=== PATIENT | male | born 1965 ===

== ENCOUNTER 2024-03-26 20:49 | Emergency (ER) | payer BC, SELFPAY ==
--- NOTE | ~2024-03-26 | CT_ITS ---
EXAMINATION: CT ANGIOGRAM NECK AND HEAD CLINICAL INFORMATION: Severe neck pain and headache COMPARISON: None. TECHNIQUE: Initial noncontrast head CT was performed. Test bolus sequences followed by intravenous administration 70 mL of Omnipaque 350. Helical imaging was performed in the axial plane from the thoracic inlet to the skull vertex. Delayed postcontrast imaging of the head was also performed. The data was processed at the human performance technologist's workstation for generation of MIP sequences. Angled MIPs and volume rendered reformatted images were also generated at an offline 3D workstation. Stenoses are assessed in accordance with NASCET criteria unless otherwise indicated. DOSE LOWERING TECHNIQUES: This CT examination was performed using dose optimization techniques as appropriate, variously including the following: - Automated exposure control - Adjustment of mA and/or kV according to patient size (this includes techniques or standardized protocols for targeted exams were dose is matched to indication/reason for exam; i.e. extremities or head) - Use of iterative reconstruction technique DLP: 2396 mGy-cm FINDINGS: Neck CTA: There is common origin of the brachiocephalic and left common carotid arteries off the aortic arch. Normal appearance of the visualized aortic arch and proximal branches. No evidence of stenosis at the branch origins. Both vertebral arteries are widely patent throughout their extracranial cervical course. There is mild calcification at the bilateral proximal internal carotid arteries, without significant stenosis. Otherwise normal appearance of the common and internal carotid arteries without focal stenosis. Brain CTA: Normal appearance of the intradural vertebral arteries, and the left vertebral artery is dominant. Normal appearance of the basilar and superior cerebellar arteries. Normally opacified posterior cerebral arteries bilaterally. Normal appearance of the intradural internal carotid arteries without focal stenosis. Normal appearance of the anterior cerebral and middle cerebral arteries without focal occlusion or stenosis. Normal anterior communicating artery. Normal arborization of the middle cerebral arteries. CT Head: No intracranial mass, hemorrhage, extra-axial collection, or midline shift. The ramirez-white matter differentiation is preserved. No pathologic intra-axial enhancement or regional oligemia. No hydrocephalus. The mastoid air cells and paranasal sinuses remain well aerated. CT Neck: The thyroid gland and remaining cervical soft tissues are normal in appearance. There is disc space narrowing and endplate osteophyte formation in the lower cervical spine. Upper Chest: No abnormalities in the visualized lung apices or upper mediastinum. CT/CT angio head neck IMPRESSION: 1. No acute intracranial findings. 2. No hemodynamically significant stenosis in the major arteries of the neck. No large vessel occlusion or significant stenosis in the intracranial circulation.
[2024-03-26 21:20] VITALS: BP 140/84; PULSE 92; RESP 16; TEMP 35.9; O2SAT 98; BMI 28.3
[2024-03-26 21:43] VITALS: BP 125/83; PULSE 87; RESP 16; TEMP 36.7; O2SAT 96
[2024-03-26 22:04] LABS: MANUAL DIFF FLAG NO
[2024-03-26 22:13] LABS: Basophils Percent Auto 0.4 % (0-2); Eosinophils Absolute Auto 0.4 X10*3/uL (0.0-0.4); Eosinophils Percent Auto 4.7 % (0-4); Hematocrit 40.5 % (42.0-52.0); Hemoglobin 13.8 g/dl (14.0-18.0); Imm Gran Abs Auto 0.01 X10*3/uL (0.00-0.03); Imm Gran Pct Auto 0.1 % (0.0-0.4); Lymphocytes Absolute Auto 4.1 X10*3/uL (1.2-4.9); Lymphocytes Percent Auto 48.9 % (20-40); Mean Corpuscular HGB Conc 34.1 g/dl (31.0-36.0); Mean Corpuscular Hemoglobin 26.7 pg (27.0-33.0); Mean Corpuscular Volume 78.5 fL (80.0-98.0); Mean Platelet Volume 9.4 fL (9.4-12.4); Monocytes Absolute Auto 0.6 X10*3/uL (0.1-1.2); Monocytes Percent Auto 7.3 % (2-11); Neutrophils Absolute Auto 3.2 x10*3/uL (2.0-8.3); Neutrophils Percent Auto 38.6 % (45-73); Platelet Count 255 X10*3/uL (160-400); Red Blood Count 5.16 X10*6/uL (4.60-5.80); Red Cell Distribution Width 12.5 % (11.0-16.0); White Blood Count 8.3 X10*3/uL (4.8-10.8)
[2024-03-26 22:20] LABS: Alanine Aminotransferase 21 U/L (0-40); Albumin Level 4.4 g/dL (3.5-5.0); Alkaline Phosphatase 48 U/L (39-117); Anion Gap 16 (12-20); Aspartate Amino Transferase 17 U/L (5-37); Bilirubin Total 0.2 mg/dL (0.0-1.0); Blood Urea Nitrogen 20 mg/dL (9-16); Calcium 10.3 mg/dL (8.4-10.2); Carbon Dioxide 24 mmol/L (22-29); Chloride 102 mmol/L (96-108); Creatinine Clr Calc Pharmacy 106.6; Estimated Glomerular Filt Rate > 60; Glucose Random 179 mg/dL (60-115); Sodium 138 mmol/L (135-145); Total Protein 7.7 g/dL (6.5-8.0)
[2024-03-26 22:51] LABS: Erythrocyte Sedimentation Rate 8 MM/HR (0-15)
--- NOTE | 2024-03-26 23:03 | ED_ITS ---
HPI - General Adult General Chief complaint: General Medical Stated complaint: head and neck pain Time Seen by Provider: 03/26/24 21:33 Source: patient Mode of arrival: ambulatory Limitations: no limitations History of Present Illness HPI narrative: Patient with no significant past medical history ambulate having headache in back of the neck pain for last 4 months started after roping exercise 4 months ago when he came out the gym noticed pain which was sharp character left side of the back radiating gradually got better after seeing chiropractor x-ray of the neck was negative patient has been taking ibuprofen for pain as needed for last 3 days pain started again side of the neck radiating to the back of the head more severe than before was seen at [facility] 2 days ago plain head CT was negative diagnose as complex migraine does have photosensitivity took sumatriptan got better again with started today 2 days ago patient vomited and felt dizzy with spinning movement. At this time patient has a deep sharp pain in bilateral sides of the neck in the occipital area. No history of migraines Related Data Previous Rx's ?Medication ?Instructions ?Recorded fmksnhcngv-rpslvfaqyzkra-sqyyntxp 1 tab PO Q6H PRN haeadace #20 tabs 03/27/24 50 mg-325 mg-40 mg tablet cyclobenzaprine 10 mg tablet 10 mg PO Q8H #20 tabs 03/27/24 tramadol 50 mg tablet 50 mg PO Q6H PRN pain #20 tabs 03/27/24 Allergies Allergy/AdvReac Type Severity Reaction Status Date / Time No Known Allergies Allergy Verified 03/26/24 21:24 Review of Systems 2 Review of Systems: Yes all other systems are reviewed and are negative [facility] Social History Social History Advance Directives: No Advance Directives Information Provided: No Do you have a plan to hurt others: No Plan Physical Exam ED Vital Signs: Vital Signs - 24 hr 03/26/24 21:20 03/26/24 21:43 Temperature 96.7 F L 98.0 F Pulse Rate 92 87 Respiratory Rate 16 16 Blood Pressure 140/84 H 125/83 Pulse Oximetry 98 96 Oxygen Delivery Method Room Air Room Air BMI result Body Mass Index 28.3 Appearance: Alert. Oriented X3. No acute distress. Eyes: PERRLA, No Nystagmus ENT: Pharynx normal. Oral Mucosa moist no carotid bruit Neck: Normal inspection. Neck supple. Diffuse tenderness bilateral paraspinal area CVS: Normal heart rate and rhythm. Pulses normal. Respiratory: No respiratory distress. Equal air entry bilateral, no wheezing/rales/rhonchi Abdomen: Soft and nontender. Bowel sounds are present, no mass palpable, no CVA tenderness Skin: Skin warm and dry. Normal skin color. Normal skin turgor. Extremities: No lower extremity edema. No calf tenderness Neuro: Oriented X 3. No motor deficit. No sensory deficit.No cerebellar signs , cranial nerves II-XII intact Medications Administered Discontinued Medications Generic Name Dose Route Start Last Admin Trade Name Freq PRN Reason Stop Dose Admin Iohexol 70 ml 03/26/24 23:05 03/26/24 23:05 Iohexol 350 Mg/Ml 100 Ml Infus..Btl IV 03/26/24 23:06 70 ml ONCE ONE Administration Medical Decision Making Medical Decision Making [facility] Narrative: Patient with nonspecific headache likely muscular strain/complex migraine CT scan CTA negative for acute on tramadol/Flexeril/Fioricet Differential Diagnosis Differential Diagnoses: The differential diagnosis associated with the presentation includes CVA/space-occupying lesion/vertebral artery dissection/vertebral artery stenosis/carotid dissection Admission/Observation Consideration of admission/observation: Escalation of care including admission/observation considered Lab Data [facility] Lab Attestation statement: I reviewed the patient's lab results. 03/26/24 21:53 03/26/24 21:53 Labs: Lab Results 03/26/24 Range/Units 21:53 WBC 8.3 (4.8-10.8) X10*3/uL RBC 5.16 (4.60-5.80) X10*6/uL Hgb 13.8 L (14.0-18.0) g/dl Hct 40.5 L (42.0-52.0) % MCV 78.5 L (80.0-98.0) fL MCH 26.7 L (27.0-33.0) pg MCHC 34.1 (31.0-36.0) g/dl RDW 12.5 (11.0-16.0) % Plt Count 255 (160-400) X10*3/uL MPV 9.4 (9.4-12.4) fL Immature Gran % (Auto) 0.1 (0.0-0.4) % Neut % (Auto) 38.6 L (45-73) % Lymph % (Auto) 48.9 H (20-40) % Brantley % (Auto) 7.3 (2-11) % Eos % (Auto) 4.7 H (0-4) % Baso % (Auto) 0.4 (0-2) % Lymph # (Auto) 4.1 (1.2-4.9) X10*3/uL Brantley # (Auto) 0.6 (0.1-1.2) X10*3/uL Eos # (Auto) 0.4 (0.0-0.4) X10*3/uL Baso # (Auto) 0.0 (0.0-0.2) X10*3/uL Abs Immat Gran (auto) 0.01 (0.00-0.03) X10*3/uL Absolute Neuts (auto) 3.2 (2.0-8.3) x10*3/uL Absolute Nucleated RBC 0.000 (0.0-0.012) X10*3/uL Nucleated RBC % (auto) 0.0 (0.0-0.2) /100WBC ESR 8 (0-15) MM/HR Sodium 138 (135-145) mmol/L Potassium 4.0 (3.3-5.1) mmol/L Chloride 102 (96-108) mmol/L Carbon Dioxide 24 (22-29) mmol/L Anion Gap 16 (12-20) BUN 20 H (9-16) mg/dL Creatinine 0.86 (0.5-1.4) mg/dL Estim Creat Clear Calc 106.6 Estimated GFR > 60 Random Glucose 179 H (60-115) mg/dL Calcium 10.3 H (8.4-10.2) mg/dL Total Bilirubin 0.2 (0.0-1.0) mg/dL AST 17 (5-37) U/L ALT 21 (0-40) U/L Alkaline Phosphatase 48 (39-117) U/L Total Protein 7.7 (6.5-8.0) g/dL Albumin 4.4 (3.5-5.0) g/dL Independent Interpretation I performed an independent interpretation of an: CT Scan Radiology Impression Discussion of test interpretation with radiology: I have reviewed the radiologist's reading. Discharge Plan Discharge Clinical Impression: Neck muscle strain, Migraine Patient Disposition: Home, Self-Care Instructions: Cervical Strain (ED), Migraine Headache (ED) Additional Instructions: Your CT scan is negative for any major arterial occlusion in your neck and the brain Take medication as prescribed for headaches likely complex migraine and muscle relaxants Prescriptions: New cyclobenzaprine 10 mg tablet 10 mg PO Q8H Qty: 20 0RF tramadol 50 mg tablet 50 mg PO Q6H PRN (Reason: pain) Qty: 20 0RF xjvenkyiss-lrrsbspjfmdrx-cdzg 50-325-40 mg tablet 1 tab PO Q6H PRN (Reason: haeadace) Qty: 20 0RF Print Language: French
[2024-03-26] MEDS: iohexoL 350 MG/ML 100 ML INFUS..BTL 70 ML IV (23:05)
[2024-03-27] MEDS: Cyclobenzaprine HCl 10 MG TABLET PO (01:01)
[2024-03-27] MEDS: Ketorolac Tromethamine 30 MG/ML VIAL IVPUSH (01:02)
[2024-03-27 01:08] VITALS: BP 134/72; PULSE 82; RESP 16; TEMP 36.9; O2SAT 98
== END 2024-03-27 01:09 | disposition home or self-care (01) ==
PROVIDERS: Emergency Provider Internal Medicine; PCP Internal Medicine Rheumatology
DX: G43.909 Migraine, unspecified, not intractable, without status migrainosus (principal); S16.1XXA Strain of muscle, fascia and tendon at neck level, initial encounter; X58.XXXA Exposure to other specified factors, initial encounter; Y93.9 Activity, unspecified; Y92.9 Unspecified place or not applicable; Y99.9 Unspecified external cause status; M54.2 Cervicalgia
CPT/HCPCS: 36415; 70496; 70498; 80053; 85025; 85652; 96374; 99284; J1885; Q9967

== ENCOUNTER 2024-05-03 18:01 | Outpatient (REF) | payer BC, SELFPAY ==
--- NOTE | ~2024-05-03 | MR_ITS ---
EXAMINATION: MR BRAIN WITHOUT CONTRAST CLINICAL INFORMATION: Chronic daily headaches COMPARISON: CTA head and neck on 03/26/2024 TECHNIQUE: MRI of the brain was obtained using routine sequences without contrast. FINDINGS: No acute intracranial hemorrhage or infarct. Scattered and confluent periventricular and deep white matter T2/FLAIR hyperintensities, nonspecific however commonly seen with small vessel ischemic disease. No midline shift or hydrocephalus. No acute extra-axial fluid collections. The osseous structures are unremarkable. Partially empty sella. The pineal gland and remaining midline structures are unremarkable. No orbital pathology. Mucosal thickening of the paranasal sinuses. The mastoid air cells are clear. MR/MR head/brain wo con IMPRESSION: -No acute intracranial abnormalities. -Chronic microangiopathy.
== END 2024-05-03 18:02 | disposition home or self-care (01) ==
LOC: HO.MRI 18:01
PROVIDERS: Visit Provider Psychiatry & Neurology Neurology
DX: R51.9 Headache, unspecified (principal); Q07.00 Arnold-Chiari syndrome without spina bifida or hydrocephalus
CPT/HCPCS: 70551